=== PATIENT | male | born 1960 ===

== ENCOUNTER 2017-06-14 16:35 | Emergency (ER) | payer OTHER, BC ==
[2017-06-14] MEDS ORDERED: diphenhydrAMINE 50 MG/ML SDV IVPUSH ONE (16:49)
[2017-06-14] MEDS ORDERED: methylPREDNISolone Sodium Succinate 125 MG/2 ML SDV IVPUSH ONE (16:50)
--- NOTE | 2017-06-14 16:54 | EDM.PDOC ---
ED HPI GENERAL MEDICAL PROBLEM - General Chief Complaint: Bite:Animal, Insect Stated Complaint: wasp stings Time Seen by Provider: 06/14/17 16:49 Source of Information: Reports: Patient History Limitations: Reports: No Limitations - History of Present Illness INITIAL COMMENTS - FREE TEXT/NARRATIVE: 56-year-old male presents the ED after being stung multiple times by hornets. 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 He was stung multiple times on the back of his head right forearm right leg left arm etc. He has no current symptoms of respiratory embarrassment or trouble swallowing or throat pressure. He has been stung in the past with localized allergic responses. Injuries occurred approximately 25 minutes ago. Onset: Today Onset Date: 06/14/17 Onset Time: 16:20 Duration: Minutes: Location: Reports: Head, Neck, Upper Extremity, Left, Upper Extremity, Right, Lower Extremity, Right Quality: Reports: Ache, Burning Severity: Moderate Improves with: Reports: None Worsens with: Reports: None Context: Reports: Other (Multiple hymenoptera stings from wasps.) Associated Symptoms: Reports: Rash Treatments CARBIDE GRINDER: Reports: Other (see below) Other Treatments CARBIDE GRINDER: none Generalized Pain Score (Numeric/FACES): 7 - Related Data Allergies Allergy/AdvReac Type Severity Reaction Status Date / Time No Known Allergies Allergy Verified 10/06/16 15:28 Home Meds: Home Meds Lisinopril [Prinivil] 5 mg PO DAILY 10/06/16 [History] Past Medical History Cardiovascular History: Reports: Hypertension - Past Surgical History Musculoskeletal Surgical History: Reports: Other (See Below) Social & Family History - Tobacco Use Smoking Status *Q: Never Smoker - Caffeine Use Caffeine Use: Reports: None - Recreational Drug Use Recreational Drug Use: No - Living Situation & Occupation Living situation: Reports: Occupation: Employed ED ROS GENERAL - Review of Systems Review Of Systems: See Below Constitutional: Reports: No Symptoms HEENT: Reports: No Symptoms. Denies: Throat Pain, Throat Swelling Respiratory: Denies: Shortness of Breath, Wheezing, Pleuritic Chest Pain Cardiovascular: Reports: Blood Pressure Problem Endocrine: Reports: No Symptoms GI/Abdominal: Reports: No Symptoms : Reports: No Symptoms Musculoskeletal: Reports: No Symptoms Skin: Reports: Erythema (Erythema and swelling at insect sting sites particularly right volar forearm and right anterior leg. Less so on the scalp), Other Neurological: Reports: No Symptoms Psychiatric: Reports: No Symptoms Hematologic/Lymphatic: Reports: No Symptoms ED EXAM, ANIMAL BITE - Physical Exam Exam: See Below Exam Limited By: No Limitations General Appearance: Alert, WD/WN, No Apparent Distress Eye Exam: Bilateral Eye: Normal Inspection Ears: Normal External Exam Nose: Normal Inspection Throat/Mouth: Normal Inspection, Normal Lips, Normal Oropharynx, Other (Uvula and floor of the mouth are normal.) Head: Other (There are at least 3 insect stings to the right occipital scalp) Neck: Normal Inspection, Supple, Non-Tender, Full Range of Motion. No: Lymphadenopathy (L), Lymphadenopathy (R) Respiratory/Chest: No Respiratory Distress, Lungs Clear, Normal Breath Sounds, No Accessory Muscle Use. No: Wheezing Cardiovascular: Normal Peripheral Pulses, Regular Rate, Rhythm, No Edema, No Gallop, No Murmur Peripheral Pulses: 2+: Posterior Tibial (L), Posterior Tibial (R), Dorsalis Pedis (L), Dorsalis Pedis (R) Extremities: Redness (Swelling proximal volar right forearm right anterior leg over the tibia and left forearm from insect stings.) Neurological: Alert, Oriented, CN II-XII Intact, Normal Cognition, Normal Gait Psychiatric: Normal Affect, Normal Mood Skin Exam: Normal Color, Warm/Dry Course - Vital Signs Last Recorded V/S: Last Vital Signs Temp 36.8 C 06/14/17 16:40 Pulse 96 06/14/17 16:40 Resp 20 06/14/17 16:40 BP 158/104 H 06/14/17 16:40 Pulse Ox 97 06/14/17 16:40 - Orders/Labs/Meds Orders: Active Orders 24 hr Category Date Time Status Ketorolac [Toradol] Med 06/14/17 17:00 Active 30 mg IVPUSH ONETIME Sodium Chloride 0.9% [Normal Saline] 1,000 ml Med 06/14/17 17:00 Active IV ASDIRECTED Medication Orders Sodium Chloride (Normal Saline) 1,000 mls @ 150 mls/hr IV ASDIRECTED SHIRIN Last Admin: 06/14/17 16:58 Dose: 150 mls/hr Ketorolac Tromethamine (Toradol) 30 mg IVPUSH ONETIME SHIRIN Last Admin: 06/14/17 17:02 Dose: 30 mg Meds: Medications Generic Name Dose Route Start Last Admin Trade Name Sabas PRN Reason Stop Dose Admin Sodium Chloride 1,000 mls @ 150 mls/hr 06/14/17 17:00 06/14/17 16:58 Normal Saline IV 150 mls/hr ASDIRECTED SHIRIN Administration Ketorolac Tromethamine 30 mg 06/14/17 17:00 06/14/17 17:02 Toradol IVPUSH 30 mg ONETIME SHIRIN Administration Discontinued Medications Generic Name Dose Route Start Last Admin Trade Name Sabas PRN Reason Stop Dose Admin Diphenhydramine HCl 50 mg 06/14/17 16:49 06/14/17 16:59 Benadryl IVPUSH 06/14/17 16:50 50 mg ONETIME ONE Administration Methylprednisolone Sodium Succinate 125 mg 06/14/17 16:50 06/14/17 17:04 Solu-Medrol IVPUSH 06/14/17 16:51 125 mg ONETIME ONE Administration - Radiology Interpretation Free Text/Narrative:: 48-year-old male attends the ED after being stung multiple times by several loss was when he was cutting down tree branches today. He has been stung on the posterior occipital scalp at least 3 places. At least once on the right volar forearm right anterior leg and I believe once on the left extensor surface of his forearm. It stings occurred approximately 20% 5 minutes before arrival in the ED. He has suffered localized allergic reactions the past. At present he still not showing any signs of respiratory or throat swelling. Plan he'll be treated with intravenous fluids at 150 mils per hour. He'll be given Benadryl 50 mg IV with slight Medrol 125 mg IV and Toradol 30 mg IV for pain relief. I will monitor him in the ED for the next 45 minutes to an hour. - Re-Assessments/Exams Free Text/Narrative Re-Assessment/Exam: 06/14/17 17:27 patient is no worse then he was upon arrival. No respiratory or throat problems. Pain more at the site of the bites particularly on his scalp. 06/14/17 18:11 has not developed any respiratory or throat embarrassment. His skin lesions are starting to fade. His head hurts the worst out of all of the bite or stings. Plan he will be discharged to home to use Benadryl 50 mg per ora every 6 hours when necessary for continued itch or swelling. Motrin 600 mg every 6 hours needed for pain relief. Ice and vinegar to the wounds. Departure - Departure Time of Disposition: 18:11 Disposition: Home, Self-Care 01 Condition: Fair Clinical Impression: Hymenoptera sting Qualifiers: Encounter type: initial encounter Injury intent: accidental or unintentional Qualified Code(s): T63.481A - Toxic effect of venom of other arthropod, accidental (unintentional), initial encounter - Discharge Information Referrals: PCP,None [Primary Care Provider] - Forms: ED Department Discharge Additional Instructions: Evaluation in the ED after being stung multiple places by wasps/hornets. Treated in the ED with 50 mg of Benadryl and Solu-Medrol 125 mg IV to prevent any late phase allergic response. Toradol 30 mg was given intravenously for pain relief. You did not develop any trouble breathing or troubles with throat closure or swallowing. This is highly unlikely to develop later either. Treatment is Motrin 600 mg every 6 hours needed for pain relief. Ice packs to the area and white vinegar to the stool sometimes will relieve the pain. Benadryl 50 mg every 6 hours needed to relieve the itch as needed. Return to the ED if any troubles develop with breathing or swallowing which is highly unlikely. - My Orders Last 24 Hours: My Active Orders 06/14/17 17:00 Ketorolac [Toradol] 30 mg IVPUSH ONETIME Sodium Chloride 0.9% [Normal Saline] 1,000 ml IV ASDIRECTED - Assessment/Plan Last 24 Hours: My Active Orders 06/14/17 17:00 Ketorolac [Toradol] 30 mg IVPUSH ONETIME Sodium Chloride 0.9% [Normal Saline] 1,000 ml IV ASDIRECTED
[2017-06-14] MEDS ORDERED: Sodium Chloride 0.9% 1,000 ML IV SCH (17:00)
[2017-06-14] MEDS ORDERED: Ketorolac 30 MG/ML SDV IVPUSH SCH (17:00)
[2017-06-14 18:31] VITALS: BP 105/62
== END 2017-06-14 18:20 | disposition home or self-care (01) ==
LOC: JD.ED 16:35
DX: T63.451A Toxic effect of venom of hornets, accidental (unintentional), initial encounter (principal); I10 Essential (primary) hypertension; Z79.899 Other long term (current) drug therapy
CPT/HCPCS: 96361; 96374; 96375; 99283; J1200; J1885; J2930; J7040

== ENCOUNTER → 2017-12-21 | Day surgery (SDC) | payer BC ==
[~2017-12-21] MED LIST: Lidocaine 1% 4 ML ONE; Propofol 200 MG/20 ML SDV ONE; Sodium Chloride 0.9% 10 ML Syringe FLUSH PRN; fentaNYL 100 MCG/2 ML SDV ONE
--- NOTE | 2017-12-21 10:22 | PCM.PREANE ---
Preanesthetic Assessment - Anesthesia/Transfusion/Family Hx Anesthesia History: Prior Anesthesia Without Reaction Family History of Anesthesia Reaction: No Transfusion History: No Prior Transfusion(s) Intubation History: Unknown - Review of Systems General: No Symptoms Pulmonary: No Symptoms Cardiovascular: No Symptoms (history of HTN, History of BPH) Gastrointestinal: No Symptoms Neurological: No Symptoms (History of motion sickness) Other: Reports: Anxiety - Physical Assessment NPO Status Date: 12/20/17 NPO Status Time: 22:00 Pulse: 53 O2 Sat by Pulse Oximetry: 98 Respiratory Rate: 20 Blood Pressure: 136/78 Temperature: 36.5 C Height: 1.73 m Weight: 80 kg ASA Class: 2 Mental Status: Alert & Oriented x3 Airway Class: Mallampati = 2 Dentition: Reports: Normal Dentition, Caries Thyro-Mental Finger Breadths: 3 Mouth Opening Finger Breadths: 3 ROM/Head Extension: Full Lungs: Clear to Auscultation, Normal Respiratory Effort Cardiovascular: Regular Rate, Regular Rhythm, No Murmurs - Allergies Allergies/Adverse Reactions: Allergies Allergy/AdvReac Type Severity Reaction Status Date / Time No Known Allergies Allergy Verified 12/20/17 13:47 - Anesthesia Plan Pre-Op Medication Ordered: None - Acknowledgements Anesthesia Type Planned: MAC Pt an Appropriate Candidate for the Planned Anesthesia: Yes Alternatives and Risks of Anesthesia Discussed w Pt/Guardian: Yes Pt/Guardian Understands and Agrees with Anesthesia Plan: Yes PreAnesthesia Questionnaire HEENT History: Reports: Hard of Hearing, Impaired Vision Cardiovascular History: Reports: High Cholesterol, Hypertension Respiratory History: Reports: None Gastrointestinal History: Reports: None Genitourinary History: Reports: BPH CONFERENCE MANAGER History: Reports: None Neurological History: Reports: None Psychiatric History: Reports: None Endocrine/Metabolic History: Reports: Hypothyroidism, Vitamin D Deficiency Hematologic History: Reports: None Immunologic History: Reports: None Oncologic (Cancer) History: Reports: None Dermatologic History: Reports: None - Past Surgical History Head Surgeries/Procedures: Reports: None HEENT Surgical History: Reports: Tonsillectomy Cardiovascular Surgical History: Reports: None Respiratory Surgical History: Reports: None GI Surgical History: Reports: None Female Surgical History: Reports: None Male Surgical History: Reports: None Neurological Surgical History: Reports: None Musculoskeletal Surgical History: Reports: Other (See Below) Other Musculoskeletal Surgeries/Procedures:: knee surgery in 1999 Oncologic Surgical History: Reports: None Dermatological Surgical History: Reports: None - SUBSTANCE USE Smoking Status *Q: Never Smoker Recreational Drug Use History: No - HOME MEDS Home Medications: Home Meds Lisinopril [Prinivil] 5 mg PO DAILY 10/06/16 [History] - CURRENT (IN HOUSE) MEDS Current Meds: Current Medications Lactated Ringer's (Ringers, Lactated) 1,000 mls @ 125 mls/hr IV ASDIRECTED SHIRIN Lidocaine/Sodium Bicarbonate (Buffered Lidocaine 1% In Ns 8.4%) 0.25 ml IDERM ONETIME PRN PRN Reason: Prior to IV Start Sodium Chloride (Saline Flush) 10 ml FLUSH ASDIRECTED PRN PRN Reason: Keep Vein Open
[2017-12-21] MEDS: Lidocaine 1%/Sod Bicarbonate in NS 8.4% 1 ML Syringe IDERM PRN (10:30)
[2017-12-21] MEDS: Lactated Ringers 1,000 ML IV SCH (10:30)
--- NOTE | 2017-12-21 11:48 | PCM.OPNOTE ---
- General Post-Op/Procedure Note Date of Surgery/Procedure: 12/21/17 Operative Procedure(s): Colonoscopy Findings: Uncomplicated sigmoid diverticuli Pre Op Diagnosis: Screening colonoscopy Post-Op Diagnosis: Sigmoid diverticulosis Anesthesia Technique: MAC, Moderate Sedation Primary Surgeon: Ciro Bland Pathology: None EBL in mLs: 0 Complications: None Condition: Good Free Text/Narrative:: After adequate IV sedation and analgesia was obtained with monitoring the patient was placed on his left side. Perianal inspection and digital rectal examination were performed next and were unremarkable. A lubricated colonoscope was inserted into the rectum through a thickened sigmoid colon to reach the cecum without difficulty. The bowel preparation was adequate. The cecum ascending colon transverse and descending colons were endoscopically normal with no mass lesions or inflammatory changes seen. The sigmoid had a few small uncomplicated diverticuli. The circular musculature was slightly hypertrophied. The rectum in both views was unremarkable. Nuclear Reactor Technician photographs were taken for the patient and for the medical record. Air was removed as I finished the procedure which he tolerated well.
--- NOTE | 2017-12-21 11:55 | PCM48HPAN ---
Post Anesthesia Note - EVALUATION WITHIN 48HRS OF ANESTHETIC Vital Signs in Normal Range: Yes Patient Participated in Evaluation: Yes Respiratory Function Stable: Yes Airway Patent: Yes Cardiovascular Function Stable: Yes Hydration Status Stable: Yes Pain Control Satisfactory: Yes Nausea and Vomiting Control Satisfactory: Yes Mental Status Recovered: Yes
[2017-12-21 14:00] VITALS: BP 124/78
== END | disposition home or self-care (01) ==
LOC: JD.SDS 09:43
PROVIDERS: ATTEND Surgery
DX: Z12.11 Encounter for screening for malignant neoplasm of colon (principal); K57.30 Diverticulosis of large intestine without perforation or abscess without bleeding; N40.0 Benign prostatic hyperplasia without lower urinary tract symptoms; I10 Essential (primary) hypertension; E78.5 Hyperlipidemia, unspecified; H90.3 Sensorineural hearing loss, bilateral; E03.9 Hypothyroidism, unspecified; E55.9 Vitamin D deficiency, unspecified; Z79.899 Other long term (current) drug therapy
CPT/HCPCS: 45378; J3010; J7120; 00812; J2704